=== PATIENT | male | born 1970 | race Caucasian/White ===

== ENCOUNTER 2017-01-16 20:04 | Emergency (ER) | payer OTHER ==
[~2017-01-16] VITALS: Ht 177.8 cm; Wt 72.7 kg
[~2017-01-16 20:04] MED LIST: OLAN10TA19 PO; PROZAC20 M1 PO
[2017-01-16 20:11] VITALS: BP 148/78; PULSE 91; RESP 16; O2SAT 97
--- NOTE | 2017-01-16 20:59 | DRSVH ---
PROCEDURE: X-RAY LEFT HIP COMPLETE, MINIMUM TWO VIEWS ([id number]) INDICATIONS: pain TECHNIQUE: 2 views of the hip were acquired. COMPARISON: [facility], CR, XR PELVIS W LATERAL HIP LT, 09/09/2015, 11:30. FINDINGS: Bones: There is a left total hip prosthesis redemonstrated with no change in alignment. No [place] prosthetic lucencies to suggest loosening or infection. The visualized pelvic ring appears intact. Soft tissues: There are periarticular calcifications around the left hip redemonstrated consistent wi th heterotopic ossification. IMPRESSION: 1. Left hip prosthesis redemonstrated without evidence of fracture or definite hardware complication . Dictated by: Jonny Johnson M.D. on 01/16/2017 at 20:56 Approved by: Jonny Johnson M.D. on 01/16/2017 at 20:57
--- NOTE | 2017-01-16 22:07 | ED.REPORT ---
HPI-Extremity Problem Lower Date of Service Jan 16, 2017 ED Provider: Dr. Price 46 y/o male with a hx of left total hip replacement with chronic hip pain presents to the ED complaining of throbbing left hip pain onset last night. He reports he was walking up the stairs when his left foot got stuck, jerking him and causing a "snap". He describes the pain as throbbing, with radiation down his entire leg and to his back. He reports associated tingling/burning of his toes. The pain is exacerbated with movement but he is able to ambulate. Pt denies swelling, fever, chills, or recent cold-like symptoms. He is taking Suboxone for chronic hip pain, followed by Dr. Morales at [facility]. Nursing Notes Stated Complaint: LEFT HIP INJURY Chief Complaint: Extremity Trauma Nursing Notes Reviewed: Yes Allergies: Coded Allergies: Penicillins (Verified Allergy, Severe, 01/16/17) hydrocodone (Verified Adverse Reaction, Mild, Nausea, 01/16/17) Scheduled FLUoxetine-Expunged Drug, Do not Renew! (Prozac-Expunged Drug, Do not Renew!) 20 Mg Cap 20 MG PO DAILY OLANZapine-Expunged Drug, Do Not Renew! (OLANZapine-Expunged Drug, Do Not Renew! ) 10 Mg Tablet 10 MG PO HS General Time Seen by MD: 22:06 Chief Complaint Hip injury left Hx Obtained From: Patient Arrived By: Walk-in Onset Occurred: Yesterday Symptom Duration: Since onset Location: : Hip left Quality: Painful Severity: Current: Moderate Severity: Maximum: Moderate Recent Healthcare: No recent doctor visit Similar Sx Previous: Yes Past Medical History Past Medical History history of IVDA, Current Suboxone use left hip pain, chronic Reports: Heroin use Past Surgical History Total hip replacement left post trauma Reports: Hip replacement Smoking History Current Every Day Smoker Social History Drug Use: In recovery Other Social History: Local resident Ambulatory Status Independent Review of Systems Constitutional: Denies: Chills, Fever Musculoskeletal: Reports: Extremity pain (Left foot pain), Joint pain (Left hip pain), Denies: Joint swelling Complete sys rev & neg: except as marked. Ears / Nose / Throat: Denies: Nasal congestion, Sore throat Respiratory: Denies: Non-productive cough, Shortness of breath Physical Exam Initial Vital Signs Vital Signs (First) Date Time Temp Pulse Resp B/P Pulse Ox O2 Delivery O2 Flow Rate FiO2 01/16/17 20:11 36.3 91 16 148/78 97 Room Air Initial VS: Reviewed, Vital signs abnormal Head / Eyes: Atraumatic, Normocephalic, PERRL ENT: Conjunctiva normal, No scleral icterus Neck: Supple, Full range of motion Respiratory: Breath sounds normal, Clear to auscultation, No respiratory distress Cardiovascular: Regular rate & rhythm, Heart sounds normal Upper Extremities: Vascular intact, Neuro intact, No swelling, No tenderness Skin: Warm, Dry, No cyanosis Psychiatric: Mood/affect normal Lower Extremity / Pelvis / MS: Atraumatic, No swelling, Neurologic intact, Vascular intact, No edema Generalized pain in left gluteal, groin, thigh and calf. Increased pain with movement. Ankle / Foot: Neurologic intact, Vascular intact intact DP pulses General/Constitutional: Awake, Alert, No acute distress Neurologic: Oriented X3, Speech NL, No motor deficits, No sensory deficits, Reflexes equal bilat Interpretation & Diagnostics X-Ray Interpretation Xray Interpretation: IMPRESSION 1. Left hip prosthesis redemonstrated without evidence of fracture or definite hardware complication. Dictated by: Jonny Johnson M.D. on 01/16/2017 at 20:56 Approved by: Jonny Johnson M.D. on 01/16/2017 at 20:57 X-Ray Ordered: Hip left Interpretation / Wet Read by: Interpret - Radiologist Re-Eval/Medical Decision Med Decision/Clinical Course This patient has chronic pain from recurrent injury which worsened his pain. There is no sinus problem with his prosthesis. There is no sign of infection on examination, the patient has generalized pain. Given these on Suboxone he cannot have other narcotics, he is given additional dose of Suboxone. Source of Hx: Old records Re-Evaluation/Progress : Time of Eval: 22:30 Re-Evaluation/Progress Note: Pt rechecked. Discussed imaging results and diagnosis. Informed the pt of the plan to discharge. Pt understands and agrees with plan. F/U instructions and RTER warning given. All questions addressed. Counseled Regarding: Diagnosis, Need for follow-up, When/why to return to ED Discharge & Departure Impression: Primary Impression: Left hip pain Disposition: Home Discharge Condition All VS Reviewed: Yes Condition: Stable Patient Instructions: Crutch Instructions (ED) Additional Instructions: Perform physical activity as tolerated by pain. Use crutches. Follow up with Dr. Holcomb. Discuss changing the Suboxone dose with Dr. Morales at [facility]. Referrals: [facility] Scribe Attestation Portions of this note were transcribed by David Collier and Brea Arriaga I, personally performed the history, physical exam and medical decision-making;I reviewed and confirmed the accuracy of the information in the transcribed note. Signed by David Collier and Brea Arriaga, Joeye. 01/17/17. 01:02 copies to: [facility] Caitlin Price MD Jan 16, 2017 22:07 David Collier Jan 16, 2017 22:21 Brea Arriaga Jan 17, 2017 01:01
[2017-01-16] MEDS ORDERED: Buprenorphine 2 mg SL Tablet SL ONE (22:20)
== END 2017-01-16 22:51 | disposition home or self-care (01) ==
LOC: SED 20:04
DX: M25.552 Pain in left hip (principal); F17.200 Nicotine dependence, unspecified, uncomplicated; Z88.0 Allergy status to penicillin; Z88.5 Allergy status to narcotic agent; Z79.899 Other long term (current) drug therapy